=== PATIENT | male | born 2000 | race Caucasian/White ===

== ENCOUNTER 2022-02-21 15:08 | Emergency (ER) | payer SELFPAY ==
[~2022-02-21] VITALS: Ht 180.3 cm; Wt 90.0 kg
[2022-02-21] MEDS ORDERED: ACET-897 PO (17:01)
[2022-02-21] MEDS ORDERED: IBUP-1022 PO (17:01)
[2022-02-21 17:10] VITALS: BP 137/63
== END 2022-02-21 18:12 | disposition home or self-care (01) ==
LOC: M ED 15:08
DX: S06.0X0A Concussion without loss of consciousness, initial encounter (principal); S00.03XA Contusion of scalp, initial encounter; W22.8XXA Striking against or struck by other objects, initial encounter; W01.0XXA Fall on same level from slipping, tripping and stumbling without subsequent striking against object, initial encounter; F17.200 Nicotine dependence, unspecified, uncomplicated; Y92.9 Unspecified place or not applicable; Y93.9 Activity, unspecified; Y99.0 Civilian activity done for income or pay